=== PATIENT | female | born 1985 | race Caucasian/White ===

== ENCOUNTER 2018-11-25 15:58 | Emergency (ER) | payer BC, SELFPAY ==
[2018-11-25 16:05] VITALS: BP 142/90; PULSE 111; RESP 16; TEMP 37; O2SAT 98
--- NOTE | 2018-11-25 16:45 | W.ED.GENAD ---
Discharge Plan Disposition Patient Disposition: HOME Condition: Stable Discharge Details Chief Complaint: RespSymp Clinical Impression: URI (upper respiratory infection) Primary Care Provider: Greta Kirk ED Provider: Jordon Solares Home Meds and New Rx's Prescriptions: New benzonatate 200 mg capsule 200 mg PO TID PRN (Reason: cough) Qty: 30 RF: 0 Continued Implanon RF: 0 Discharge Instructions Instructions: Upper Respiratory Infection (ED) Additional Instructions: Stay well-hydrated and get plenty of rest during illness. Please continue to use [id number] cough and cold medication as needed to control your symptoms. Feel free to return to the emergency department for any new significant worsening of symptoms or further concerns you may also follow-up with your primary care provider as needed for reassessment. Stand Alone Forms: Work Release Referrals: Greta Kirk [Primary Care Provider] - (As needed for reassessment or if not improving) Discharge Data Discharge Date/Time-TO BE ENTERED AT DEPARTURE: 11/25/18 17:15 Medical Decision Making URI symptoms for the past 5 days. Patient denies any worsening of symptoms but just more concerned about persistent cough. She states that she has been taking [id number] medications which have been moderately helping. Patient did try to get into her primary care provider but they had no open appointments so she is presenting the emergency department for evaluation. Patient has clear lung sounds, normal HEENT exam, no lymphadenopathy no meningeal signs. Patient is mildly tachycardic but not hypoxic not hypotensive and afebrile. I feel the patient has upper respiratory tract infection. I do not feel that patient requires antibiotics at this time given non-worrisome exam and pt denying no worsening of symptoms, thorough return precautions were discussed. After discussion of diagnosis and plan of care patient has no further needs, questions, or concerns and states clear understanding to return to the emergency department for any worsening symptoms. HPI General Mode of arrival: ambulatory. Date/Time Provider Initiated Documentation: 11/25/18 16:09. Limitations to Documentation: no limitations. Information obtained by: patient. History of Present Illness 33 year old F presents to the emergency department with the chief complaint of cough and cold symptoms, described as mild, with intensity rated at 1. Quality is described as aching, and is localized to the chest. Patient started experiencing this day(s) (5) and it has been constant. Patient did receive the following treatments prior to arrival, none Related Data Home Medications Medication Instructions Recorded Confirmed Implanon 06/04/17 benzonatate 200 mg PO TID PRN #30 cap 11/25/18 Previous Rx's Medication Instructions Recorded benzonatate 200 mg PO TID PRN #30 cap 11/25/18 Allergies Allergy/AdvReac Type Severity Reaction Status Date / Time HYPTHERMIC ANESTHESIA Allergy Severe Uncoded 11/25/18 16:09 General Stated Complaint: RespSymp PAU: 4 Review of Systems Constitutional Reports body ache(s), Reports chills, Reports fever(s), Reports headache(s) and Reports malaise Eyes Denies eye discharge ENT Reports as per HPI, Denies ear discharge, Denies otalgia, Reports headache(s), Reports nasal congestion, Reports nasal discharge, Denies neck pain, Reports sinus pressure, Reports sore throat and Denies throat swelling Cardiovascular Denies chest pain and Denies dyspnea Respiratory Reports cough, Reports pain with cough and Denies dyspnea Gastrointestinal Reports vomiting (with severe coughing episodes) Musculoskeletal Denies joint swelling and Denies neck pain Integumentary/Breasts Denies rash Neurologic Reports headache(s) Allergic/Immunologic Denies throat swelling [facility] Medical History History of dysmenorrhea Surgical History Tonsillectomy and adenoidectomy Family History mother's side of the family Family history of malignant hyperthermia Social History Smoking and Tabacco status: Never Exam Const General: cooperative, comfortable and no acute distress Orientation: alert and awake [facility] Head: normal to inspection, normocephalic and atraumatic Ears: hearing grossly normal bilaterally and TM's normal bilaterally General nose exam: external nose normal Face and sinus: normal facial exam, sinuses nontender and no erythema Mouth: oral mucosae normal, no drooling, no muffled voice and no trismus Throat: posterior oropharynx normal, tonsils normal and uvula midline Neck Neck: normal visual inspection, full ROM, no lymphadenopathy, no meningeal signs, trachea midline and supple Resp Effort & Inspection: normal respiratory effort, able to speak in complete sentences and cough Quality of cough: dry Auscultation: clear to auscultation bilaterally Cardio Rate: regular rate Rhythm: regular rhythm Heart Sounds: S1 normal, S2 normal, normal S1 and S2, no click, no gallops, no murmurs and no rubs Skin General skin exam: no rashes or lesions noted and dry skin (warm) Neuro General: alert, awake, oriented x3, gait normal and moves all extremities Cognition: normal cognition Speech: speech normal Course Vital Signs Temperature 37 C 11/25/18 16:05 Pulse 111 H 11/25/18 16:05 Respiratory Rate 16 11/25/18 16:05 Blood Pressure 142/90 H 11/25/18 16:05 Pulse Oximetry 98 11/25/18 16:05 Temperature 37 C 11/25/18 16:05 Temperature Source Skin 11/25/18 16:05 Pulse 111 H 11/25/18 16:05 Respiratory Rate 16 11/25/18 16:05 Respiratory Effort Non-Labored 11/25/18 16:33 Respiratory Depth Normal 11/25/18 16:33 Blood Pressure 142/90 H 11/25/18 16:05 Blood Pressure Position Sitting 11/25/18 16:05 Pulse Oximetry 98 11/25/18 16:05 Oxygen Delivery Method Room Air 11/25/18 16:05 Oxygen Flow Rate 0 11/25/18 16:05 Pain Level 1 11/25/18 16:05
--- NOTE | 2018-11-25 16:48 | ED.GENADUL_ITS ---
Discharge Plan Disposition Patient Disposition: HOME Condition: Stable Discharge Details Chief Complaint: RespSymp Clinical Impression: URI (upper respiratory infection) Primary Care Provider: Greta Kirk ED Provider: Jordon Solares Home Meds and New Rx's Prescriptions: New benzonatate 200 mg capsule 200 mg PO TID PRN (Reason: cough) Qty: 30 RF: 0 Continued Implanon RF: 0 Discharge Instructions Instructions: Upper Respiratory Infection (ED) Additional Instructions: Stay well-hydrated and get plenty of rest during illness. Please continue to use [id number] cough and cold medication as needed to control your symptoms. Feel free to return to the emergency department for any new significant worsening of symptoms or further concerns you may also follow-up with your primary care provider as needed for reassessment. Stand Alone Forms: Work Release Referrals: Greta Kirk [Primary Care Provider] - (As needed for reassessment or if not improving) Discharge Data Discharge Date/Time-TO BE ENTERED AT DEPARTURE: 11/25/18 17:15 Medical Decision Making URI symptoms for the past 5 days. Patient denies any worsening of symptoms but just more concerned about persistent cough. She states that she has been taking qrkn-hxb-[id number] medications which have been moderately helping. Patient did try to get into her primary care provider but they had no open appointments so she is presenting the emergency department for evaluation. Patient has clear lung sounds, normal HEENT exam, no lymphadenopathy no meningeal signs. Patient is mildly tachycardic but not hypoxic not hypotensive and afebrile. I feel the patient has upper respiratory tract infection. I do not feel that patient requires antibiotics at this time given non-worrisome exam and pt denying no worsening of symptoms, thorough return precautions were discussed. After discussion of diagnosis and plan of care patient has no further needs, questions, or concerns and states clear understanding to return to the emergency department for any worsening symptoms. HPI General Mode of arrival: ambulatory . Date/Time Provider Initiated Documentation: 11/25/18 16:09 . Limitations to Documentation: no limitations . Information obtained by: patient . History of Present Illness 33 year old F presents to the emergency department with the chief complaint of cough and cold symptoms, described as mild, with intensity rated at 1. Quality is described as aching, and is localized to the chest. Patient started experiencing this day(s) (5) and it has been constant. Patient did receive the following treatments prior to arrival, none Related Data Home Medications Medication Instructions Recorded Confirmed Implanon 06/04/17 benzonatate 200 mg PO TID PRN #30 cap 11/25/18 Previous Rx's Medication Instructions Recorded benzonatate 200 mg PO TID PRN #30 cap 11/25/18 Allergies Allergy/AdvReac Type Severity Reaction Status Date / Time HYPTHERMIC ANESTHESIA Allergy Severe Uncoded 11/25/18 16:09 General Stated Complaint: RespSymp PAU: 4 Review of Systems Constitutional Reports body ache(s), Reports chills, Reports fever(s), Reports headache(s) and Reports malaise Eyes Denies eye discharge ENT Reports as per HPI, Denies ear discharge, Denies otalgia, Reports headache(s), Reports nasal congestion, Reports nasal discharge, Denies neck pain, Reports sinus pressure, Reports sore throat and Denies throat swelling Cardiovascular Denies chest pain and Denies dyspnea Respiratory Reports cough, Reports pain with cough and Denies dyspnea Gastrointestinal Reports vomiting (with severe coughing episodes) Musculoskeletal Denies joint swelling and Denies neck pain Integumentary/Breasts Denies rash Neurologic Reports headache(s) Allergic/Immunologic Denies throat swelling [facility] Medical History History of dysmenorrhea Surgical History Tonsillectomy and adenoidectomy Family History mother's side of the family Family history of malignant hyperthermia Social History Smoking and Tabacco status: Never Exam Const General: cooperative, comfortable and no acute distress Orientation: alert and awake [facility] Head: normal to inspection, normocephalic and atraumatic Ears: hearing grossly normal bilaterally and TM's normal bilaterally General nose exam: external nose normal Face and sinus: normal facial exam, sinuses nontender and no erythema Mouth: oral mucosae normal, no drooling, no muffled voice and no trismus Throat: posterior oropharynx normal, tonsils normal and uvula midline Neck Neck: normal visual inspection, full ROM, no lymphadenopathy, no meningeal signs, trachea midline and supple Resp Effort & Inspection: normal respiratory effort, able to speak in complete sentences and cough Quality of cough: dry Auscultation: clear to auscultation bilaterally Cardio Rate: regular rate Rhythm: regular rhythm Heart Sounds: S1 normal, S2 normal, normal S1 and S2, no click, no gallops, no murmurs and no rubs Skin General skin exam: no rashes or lesions noted and dry skin (warm) Neuro General: alert, awake, oriented x3, gait normal and moves all extremities Cognition: normal cognition Speech: speech normal Course Vital Signs Temperature 37 C 11/25/18 16:05 Pulse 111 H 11/25/18 16:05 Respiratory Rate 16 11/25/18 16:05 Blood Pressure 142/90 H 11/25/18 16:05 Pulse Oximetry 98 11/25/18 16:05 Temperature 37 C 11/25/18 16:05 Temperature Source Skin 11/25/18 16:05 Pulse 111 H 11/25/18 16:05 Respiratory Rate 16 11/25/18 16:05 Respiratory Effort Non-Labored 11/25/18 16:33 Respiratory Depth Normal 11/25/18 16:33 Blood Pressure 142/90 H 11/25/18 16:05 Blood Pressure Position Sitting 11/25/18 16:05 Pulse Oximetry 98 11/25/18 16:05 Oxygen Delivery Method Room Air 11/25/18 16:05 Oxygen Flow Rate 0 11/25/18 16:05 Pain Level 1 11/25/18 16:05
== END 2018-11-25 17:15 | disposition home or self-care (01) ==
PROVIDERS: Emergency Provider Nurse Practitioner Family; PCP Nurse Practitioner Family
DX: J06.9 Acute upper respiratory infection, unspecified (principal)
CPT/HCPCS: 99283

== ENCOUNTER 2019-08-31 09:55 | Outpatient (CLI) | payer BC, SELFPAY ==
[2019-09-01 09:46] LABS: HIV-1/2 Ag & Ab Screen Negative (Negative); Hepatitis C Ab w Rflx HCV PCR Negative (Negative)
[2019-09-01 09:47] LABS: Hepatitis B Surface Ag Negative (Negative)
== END 2019-08-31 10:15 ==
PROVIDERS: PCP Nurse Practitioner Family; Visit Provider Nurse Practitioner Women's Health
DX: Z11.4 Encounter for screening for human immunodeficiency virus [HIV] (principal); Z11.59 Encounter for screening for other viral diseases
CPT/HCPCS: 36415; 86803; 87340; 87389

== ENCOUNTER 2019-08-31 12:49 | Outpatient (REF) | payer BC, SELFPAY ==
--- NOTE | 2019-08-31 09:30 | PAPFT_PTH ---
PATIENT: MIRELLA CHOUDHURY LOC: [facility] U#:[id number] AGE/SX: 33/F ROOM: RE08/31/[address]: Medina Siddiqi NP : 1985 BED: DIS: 08/31/2019 SPEC #: [id number] RECD: 08/31/19 17:18 STATUS: TJ RETim #: [id number] ANA ROSA: 08/31/19 09:[address]: Medina Siddiqi NP DEPT: [facility] Cytology RECD BY: Nyla Guzman ENTERED: 08/31/19 17:18 SP TYPE: PAPFT OTHR DR: Greta Kirk Tissues: 1 - CX/ENDOCX FOR PAP SMEARS Procedures: PAP THIN PREP/[facility] Screening HPV DNA PROBE Comments: [id number] (CHLAMYDIA/GC)
[2019-09-01 14:30] LABS: Chlamydia Result Negative (Negative); GC Result Negative (Negative)
== END 2019-08-31 13:09 ==
LOC: LBN 12:49
PROVIDERS: PCP Nurse Practitioner Family; Visit Provider Nurse Practitioner Women's Health
DX: Z11.3 Encounter for screening for infections with a predominantly sexual mode of transmission (principal); Z12.4 Encounter for screening for malignant neoplasm of cervix
CPT/HCPCS: 87491; 87591; 88142; 87624